=== PATIENT | male | born 1985 | race Caucasian/White ===

== ENCOUNTER 2021-01-12 13:25 | Outpatient (REF) | payer MEDICAID, SELFPAY ==
[2021-01-12 14:26] LABS: Glucose Urine UA NEG (NEG); Leukocyte Esterase Urine NEG (NEG); Nitrite Urine NEG (NEG); Specific Gravity - Urine 1.025 (1.005-1.025); Urine Blood NEG (NEG); Urine Ketones NEG (NEG); Urine Protein NEG (NEG-TRACE)
[2021-01-12 14:30] LABS: Appearance Urine HAZY; Color Urine YELLOW
== END 2021-01-12 13:26 | disposition home or self-care (01) ==
LOC: HO.LAB 13:25
PROVIDERS: Visit Provider Internal Medicine
DX: M54.5 Low back pain (principal); Z87.442 Personal history of urinary calculi
CPT/HCPCS: 81003; 87086

== ENCOUNTER 2021-01-19 15:25 | Outpatient (REF) | payer MEDICAID, SELFPAY ==
--- NOTE | ~2021-01-19 | US_ITS ---
EXAMINATION: US RETROPERITONEAL COMPLETE (RENAL) CLINICAL INFORMATION: Kidney stone. COMPARISON: None TECHNIQUE: Real-time imaging of the kidneys and bladder. FINDINGS: RIGHT KIDNEY: 11.8 x 6.4 x 4.7 cm (SAG x AP x TRV). The kidney is normal in size and echogenicity. There is a dromedary hump noted along the lateral cortex. Renal cortical thickness is normal. No calculi or focal parenchymal lesions. No hydronephrosis. LEFT KIDNEY: 12.8 x 6.7 x 5.4 cm (SAG x AP x TRV). The kidney is normal in size, contour, and echogenicity. Renal cortical thickness is normal. No focal parenchymal lesions or hydronephrosis. There is an echogenic stone upper pole measuring 0.5 x 0.5 cm. BLADDER: Well distended and normal. Bilateral ureteral jets are demonstrated. Prevoid bladder volume is 157.8 mL. Postvoid bladder volume is 2.9 mL. Prostate volume is 23.9 mL. Scattered calcifications visualized in the prostate gland. US/US retroperitoneal comp IMPRESSION: Moderate-sized hump along the lateral cortex right kidney question dromedary hump. Nonobstructive echogenic 0.5 cm stone upper pole right kidney.
== END 2021-01-19 15:26 | disposition home or self-care (01) ==
LOC: HO.US 15:25
PROVIDERS: PCP Internal Medicine; Visit Provider Internal Medicine
DX: N20.0 Calculus of kidney (principal)
CPT/HCPCS: 76770

== ENCOUNTER 2021-02-12 10:57 | Outpatient (REF) | payer MEDICAID, SELFPAY ==
--- NOTE | ~2021-02-12 | CT_ITS ---
EXAMINATION: CT ABDOMEN WITHOUT CONTRAST CLINICAL INFORMATION: Abnormal right kidney. Hump on the ultrasound. COMPARISON: Ultrasound abdomen 01/19/2021. TECHNIQUE: Contiguous axial thin section helical images of the abdomen were performed without contrast. The data set was reformatted in the coronal and sagittal planes and reviewed on an independent workstation. This CT examination was performed using dose optimization techniques as appropriate, variously including the following: *Automated exposure control *Adjustment of mA and/or kV according to patient size (this includes techniques or standardized protocols for targeted exams where dose is matched to indication/reason for exam; i.e. extremities or head) *Use of iterative reconstruction technique DLP: 335 mGy-cm FINDINGS: LUNG BASES: The lung bases are clear. Atelectatic changes are seen in the left lower lobe lateral segment. Heart size is normal. LIVER, GALLBLADDER, BILIARY TREE: The liver is normal in size and shape with decreased attenuation in the right hepatic lobe. No focal lesion or intrahepatic ductal dilatation is seen. The gallbladder is normal. The CBD is normal caliber. PANCREAS: The pancreas is homogeneous in density and normal in size. SPLEEN: The spleen is unremarkable. ADRENAL GLANDS AND KIDNEYS: Adrenal glands are symmetrical and normal. Bilateral kidneys are normal in size, shape and position. There is a 4 mm nonobstructive radiopaque calculus in the upper/mid pole and a 3 mm radiopaque calculus in the mid pole calyx of the left kidney. There is no caliectasis or hydronephrosis. There is a dromedary hump along the right kidney and no mass seen. BOWEL LOOPS: There is scattered stool and gas seen throughout the colon without significant distention. A few scattered diverticula are seen. The small bowel loops are normal caliber. The appendix is partially visualized at the tip and appears normal caliber. LYMPH NODES: Small scattered lymph nodes are seen in the retroperitoneum. VASCULAR: Unremarkable. BONES: Unremarkable. CT/CT abdomen wo con IMPRESSION: 2 nonobstructive radiopaque calculi left kidney. Small dromedary hump in the mid pole of the right kidney is concordant with ultrasound findings. Mild hepatic steatosis right lobe.
== END 2021-02-12 10:58 | disposition home or self-care (01) ==
LOC: HO.CT 10:57
PROVIDERS: Visit Provider Internal Medicine
DX: R93.429 Abnormal radiologic findings on diagnostic imaging of unspecified kidney (principal)
CPT/HCPCS: 74150

== ENCOUNTER → 2021-11-05 13:43 | Outpatient (REF) | payer MEDICAID, SELFPAY | LOC: HO.SL 13:43 | PROVIDERS: PCP Internal Medicine; Visit Provider Internal Medicine | DX: G47.33 Obstructive sleep apnea (adult) (pediatric) (principal) | CPT/HCPCS: 95806 ==

== ENCOUNTER 2022-05-29 12:55 | Emergency (ER) | payer MEDICAID, SELFPAY ==
[2022-05-29 13:30] VITALS: BP 139/109; PULSE 90; RESP 18; TEMP 36.7; O2SAT 99; BMI 29.8
[2022-05-29 13:50] LABS: COVID-19 Test Positive (Negative); IDNOW Serial# 16C4AD1C
[2022-05-29 13:55] LABS: Influenza A Negative (Negative); Influenza B2 Negative (Negative)
--- NOTE | 2022-05-29 15:40 | ED.GENADULT ---
HPI - General Adult General Chief complaint: General Medical Stated complaint: lightheaded, fever, coughing Time Seen by Provider: 05/29/22 15:33 Source: patient Mode of arrival: ambulatory Limitations: no limitations History of Present Illness HPI narrative: 37-year-old male here with headache, chills, nausea, runny nose, sore throat for 3 days. No fever, vomiting, abdominal pain, diarrhea, skin rash, neck pain or stiffness. Patient has received 2 COVID vaccinations He did a home test that had a faint line and so he is concern for COVID Related Data Allergies Allergy/AdvReac Type Severity Reaction Status Date / Time No Known Allergies Allergy Unknown Unverified 08/07/20 16:03 Review of Systems Review of Systems: Yes all other systems are reviewed and are negative Constitutional: Constitutional: Reports no additional constitutional complaints, Reports body ache(s), Denies chills, Reports fever(s), Reports headache(s) and Denies weakness Eyes: Eyes: Reports no additional eye complaints and Denies change in vision ENT: Reports system reviewed and no additional complaints, except as documented, Denies dizziness, Reports headache(s), Reports nasal congestion, Denies nasal discharge, Denies neck pain and Reports sore throat Cardiovascular: Cardiovascular: Reports no additional cardiovascular complaints, Denies chest pain, Denies leg edema and Denies dyspnea Respiratory: Respiratory: Reports no additional respiratory complaints, Denies cough and Denies dyspnea Gastrointestinal: Gastrointestinal: Reports no additional gastrointestinal complaints, Denies abdominal pain, Denies diarrhea, Reports nausea and Denies vomiting Genitourinary: Genitourinary: Denies urinary incontinence Musculoskeletal: Musculoskeletal: Reports no additional musculoskeletal complaints, Denies back pain, Denies arthralgias, Denies joint swelling, Denies neck pain, Denies numbness and Denies tingling Integumentary/Breasts: Skin/Breast: Reports system reviewed and no additional complaints, except as docu and Denies rash Neurologic: Reports system reviewed and no additional complaints, except as documented, Denies dizziness, Reports headache(s), Denies numbness, Denies tingling and Denies weakness PMFSH Past Medical History Attestation statement: The following information was validated with the patient. Source: old records reviewed and nursing notes reviewed Social History Social History Advance Directives: No Advance Directives Information Provided: No Physical Exam ED Vital Signs: Vital Signs - 24 hr 05/29/22 13:30 Temperature 98.1 F Pulse Rate 90 Respiratory Rate 18 Blood Pressure 139/109 H Pulse Oximetry 99 Oxygen Delivery Method Room Air BMI result Body Mass Index 29.8 Const General: cooperative, healthy appearing and comfortable Orientation/consciousness: patient oriented x3 Limitations: no limitations HENMT Head: Yes normal to inspection Ears: hearing grossly normal bilaterally and TM's normal bilaterally General nose exam: Normal external nose present Throat: Yes posterior oropharynx normal, Yes tonsils normal and Yes uvula midline Eyes General: appearance normal, both eyes and all related structures Pupils: Equal, round and reactive pupils present Neck Neck: Yes normal visual inspection, Yes full ROM, Yes no lymphadenopathy and Yes no meningeal signs Chest Chest palpation & inspection: normal inspection of the chest Resp Effort & Inspection: normal respiratory effort Auscultation: clear to auscultation bilaterally Cardio Rate: regular rate Rhythm: regular rhythm Peripheral pulses: Peripheral pulses 2+ throughout GI Inspection: Yes normal to inspection Palpation (GI): Soft to palpation and nontender Back/Spine/Pelvis Thoracic/Lumbar Spine: thoracic and lumbar spine normal to inspection Skin General skin exam: no rashes or lesions noted Neuro General: patient oriented x3, moves all extremities and no meningeal signs Cranial nerves: Yes Equal, round and reactive pupils present Course Course Course Narrative: COVID screen is positive. Patient has no hypoxia or tachypnea. Lungs are clear. Will discharge home and recommend quarantine. Reviewed worrisome signs and symptoms of when to return to the emergency department. Comfortable discharge home. Medical Decision Making MDM Narrative Medical decision making narrative: 37-year-old male here with flu-like symptoms for 3 days. Will check COVID screen. Vitals are stable. Medical Records Medical records reviewed: Yes I reviewed the patient's medical records. Lab Data Lab results reviewed: Yes I reviewed the patient's lab results. Labs: Lab Results 05/29/22 05/29/22 Range/Units 13:34 13:34 COVID-19 (PATO) Positive A (Negative) COVID-19 Clin Com See Note Influenza Type A (MARTIN) Negative (Negative) Influenza Type B (MARTIN) Negative (Negative) Influenza A & B Note See Note Discharge Plan Discharge Clinical Impression: COVID Patient Disposition: Home, Self-Care Instructions: COVID-19 (Coronavirus Disease 2019) (ED) Additional Instructions: Quarantine for 5 days Alternate Motrin or Tylenol for pain or fever Increase fluids, rest Referrals: Miquel Boyd MD [Primary Care Provider] - Stand Alone Forms: Work/School Release Interventions: ED Discharge Assessment Last Done: 05/29/22 15:42 Discharge Date/Time: 05/29/22 15:43
== END 2022-05-29 15:43 | disposition home or self-care (01) ==
PROVIDERS: Emergency Provider Emergency Medicine; PCP Internal Medicine
DX: U07.1 COVID-19 (principal); R42 Dizziness and giddiness; R50.9 Fever, unspecified; R05.9 Cough, unspecified; R51.9 Headache, unspecified; Z79.899 Other long term (current) drug therapy
CPT/HCPCS: 87502; 87635; 99283

== ENCOUNTER 2022-06-14 13:48 | Outpatient (REF) | payer MEDICAID, SELFPAY ==
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
== END 2022-06-14 13:49 | disposition home or self-care (01) ==
LOC: HO.XRAY 13:48
PROVIDERS: PCP Internal Medicine; Visit Provider Internal Medicine
DX: R06.02 Shortness of breath (principal); Z86.16 Personal history of COVID-19
CPT/HCPCS: 71046